=== PATIENT | male | born 1990 | race Caucasian/White ===

== ENCOUNTER 2024-06-13 17:29 | Emergency (ER) | payer SELFPAY ==
[2024-06-13 17:30] VITALS: BP 140/103; PULSE 77; RESP 20; TEMP 36.8; O2SAT 98; BMI 30.3
--- NOTE | 2024-06-13 18:31 | EDS_ITS ---
HPI History of Present Illness Chief Complaint: Allergic Reaction Informant: patient Narrative Narrative: Patient is a 33-year-old male with no known allergies presenting for allergic reaction after presumed bee sting. He felt something hit his neck and he tried to swat it away. He then felt a sting in the back of his head. This is when he is picking up his son from daycare. When he got home he knows that he was starting to have itching and a rash. He then felt that he was having tingling and swelling low bit in his mouth and in his nose. He states he fell like he was congested even though he had been congested the whole day. Did not take anything for symptoms prior to arrival and came to the emergency room. No other complaints or concerns at this time. Has never had a reaction like this before. [facility] Medical History no medical history Home Medications ?Medication ?Instructions ?Recorded ?Last Taken ?Type epinephrine 0.3 mg/0.3 mL 0.3 mg (0.3 mL) IM Q15M PRN 06/13/24 Unknown Rx injection, auto-injector anaphylaxis #2 ea famotidine 20 mg tablet 20 mg PO BID #14 TABLETS 06/13/24 Unknown Rx prednisone 20 mg tablet 40 mg (2 x 20 mg) PO DAILY #10 tabs 06/13/24 Unknown Rx Allergy/AdvReac Type Severity Reaction Status Date / Time bee venom protein (honey Allergy Mild Swelling Verified 06/13/24 17:30 bee) (bee sting) Family History no significant family his Surgical History no surgical history Social History Smoking Status: Never smoker ROS [facility] ED Constitutional Constitutional ED: Denies chills or fever(s) ENT ENT ED: Reports sore throat and other Details: facial swelling Cardiovascular Cardiovascular: Denies chest pain Respiratory/Chest Respiratory/Chest: Denies cough or dyspnea Gastrointestinal Gastrointestinal: Denies diarrhea, nausea or vomiting Musculoskeletal Musculoskeletal: Denies arthralgias or myalgias Integumentary Reports rash Neurologic Neurologic: Denies headache(s) Allergic/Immunologic Allergic/Immunologic ED: Reports mouth swelling and urticaria EXAM Physical Exam Const Vital Signs: 06/13/24 17:30 06/13/24 19:29 06/13/24 21:00 Temperature 98.2 F 98.1 F Temperature Source Temporal Oral Pulse Rate 77 66 67 Respiratory Rate 20 H 20 H 18 Blood Pressure 140/103 H 142/94 H 114/92 H Blood Pressure Mean 115 110 99 Pulse Ox 98 98 97 Oxygen Delivery Method Room Air Room Air Room Air 06/13/24 21:26 Temperature 98 F Temperature Source Pulse Rate 67 Respiratory Rate 18 Blood Pressure 114/92 H Blood Pressure Mean 99 Pulse Ox 97 Oxygen Delivery Method Positive well nourished and well developed General Appearance ED: well developed and NAD HEENT Reports moist mucous membranes MDM MDM MDM Narrative Medical decision making narrative: Patient is evaluated for allergic reaction after bee/wasp sting. Patient appears nontoxic. On exam he does have some very subtle localized edema to the uvula as well as hives. Protecting his airway. Not having any other swelling of the mucosal membranes and I do not think requires epinephrine at this time but will observe him closely. Patient is given Benadryl, Pepcid and Solu-Medrol in the ER. He is monitored for couple hours and feels improved on final reevaluation. Is tolerating p.o. Will be discharged home with a prescription for an EpiPen, prednisone and Pepcid. Has Benadryl or Zyrtec to take at home. Given return precautions. Patient verbalized agreement to this plan. Discharged home in stable condition. Discharge Plan Triage Chief Complaint: Allergic Reaction ED Provider: Madyson Prasad Dx/Rx/DC Orders Clinical Impression: Bee sting, Allergic reaction, Hives, Swollen uvula Instructions: ED BEE STING General Allergic Rxn Prescriptions: New prednisone 20 mg tablet 40 mg PO DAILY Qty: 10 0RF famotidine 20 mg tablet 20 mg PO BID Qty: 14 0RF epinephrine 0.3 mg/0.3 mL auto-injector 0.3 mg IM Q15M PRN (Reason: anaphylaxis) Qty: 2 0RF Rx Instructions: for 2 doses Primary Care Provider: Care Physician,No Primary Referrals: Care Physician,No Primary [Primary Care Provider] - Activity Restrictions/Additional Instructions: Take Benadryl [id number] (2 tablets/capsules every 6 hours) or Zyrtec 1 tablet twice a day as needed for further allergic symptoms as well. Print Language: Yakut Disposition Disposition: Home, Self Care Discharge Date/Time: 06/13/24 21:27
[2024-06-13] MEDS: DiphenhydrAMINE 50 MG/ML Syringe IV (18:33)
[2024-06-13] MEDS: MethylPREDNISolone 125 MG/2 ML Vial IV (18:34)
[2024-06-13] MEDS: Famotidine 200 MG/20 ML MDV 20 MG in 0.9% Normal Saline (Pres. free 8 ML 300 MG IV (18:46)
[2024-06-13 19:29] VITALS: BP 142/94; PULSE 66; RESP 20; TEMP 36.7; O2SAT 98
[2024-06-13 21:00] VITALS: BP 114/92; PULSE 67; RESP 18; O2SAT 97
[2024-06-13 21:26] VITALS: BP 114/92; PULSE 67; RESP 18; TEMP 36.6; O2SAT 97
== END 2024-06-13 21:27 | disposition home or self-care (01) ==
PROVIDERS: Emergency Provider Emergency Medicine; Visit Provider Emergency Medicine
DX: T63.441A Toxic effect of venom of bees, accidental (unintentional), initial encounter (principal); R60.0 Localized edema; R21 Rash and other nonspecific skin eruption; R20.2 Paresthesia of skin; Z79.52 Long term (current) use of systemic steroids; J02.9 Acute pharyngitis, unspecified; L50.0 Allergic urticaria
CPT/HCPCS: 96374; 96375; 99283; A4216; J3490